=== PATIENT | male | born 1975 | race Caucasian/White ===

== ENCOUNTER 2019-12-08 15:42 | Emergency (ER) | payer OTHER ==
[~2019-12-08] VITALS: Ht 172.7 cm; Wt 79.4 kg
[2019-12-08] MEDS ORDERED: METFORMIN HCL1000 M3 PO (16:19)
[2019-12-08] MEDS ORDERED: FARXIGA10 MG PO (16:19)
[2019-12-08] MEDS ORDERED: ONGLYZA5 MG PO (16:20)
[2019-12-08] MEDS ORDERED: ALTACE2.5 MG PO (16:20)
== END 2019-12-08 21:29 | disposition home or self-care (01) ==
LOC: ER 15:42
DX: I95.89 Other hypotension (principal); R42 Dizziness and giddiness